=== PATIENT | female | born 1990 | race Caucasian/White ===

== ENCOUNTER 2017-12-03 02:58 | Day surgery (SDC) | payer BC ==
[2017-01-07 05:52] VITALS: Ht 165.1 cm; Wt 100.7 kg
[~2017-12-03] VITALS: Ht 165.1 cm; Wt 100.7 kg
[~2017-12-03 02:58] MED LIST: ACET-1718 PO; ACET-1966 PO; BIRTH CONTROL; DOXY-252; ETON1VAG7 VG; HYOS-24 SL; IBUP800T37 PO; LEVO-3 PO; LIB PO; LOR5 PO; LOR5/325 PO; NOR5/325 PO; ONDA4TAB PO; PAIN PILL PO; PREN-123 PO; PREN-127 PO; TRAM-420 PO; [UNRECOGNIZED DRUG - CODE] PO
[2017-12-03] MEDS ORDERED: fentaNYL CITR 250 MCG/5 ML AMP ONE (09:45)
[2017-12-03] MEDS ORDERED: PROPOFOL EMUL(*) 10MG/ML 20 ML 20 ML ONE (09:46)
[2017-12-03] MEDS ORDERED: ONDANSETRON 4 MG/2 ML VIAL ONE (09:46)
[2017-12-03] MEDS ORDERED: LIDOCAINE MPF 1% 5 ML VIAL ONE (09:46)
[2017-12-03] MEDS ORDERED: DEXAMETHASONE SOD PHOS 10MG/ML ONE (09:46)
[2017-12-03] MEDS ORDERED: KETAMINE HCL 200 MG/20 ML MDV ONE (09:48)
[2017-12-03] MEDS ORDERED: NORMOSOL R SOLN(*) 1000 ML BAG 1,000 ML IV PRN (10:55)
[2017-12-03] MEDS ORDERED: LIDOCAINE/SOD BICARB 8.4% SYR ID ONE (10:55)
[2017-12-03] MEDS ORDERED: MIDAZOLAM 2 MG/2 ML VIAL IVP PRN (10:55)
[2017-12-03] MEDS ORDERED: PHENAZOPYRIDINE 200 MG TAB PO ONE (10:55)
[2017-12-03] MEDS ORDERED: FAMOTIDINE 20 MG TAB PO ONE (10:55)
[2017-12-03] MEDS ORDERED: KETOROLAC 30 MG/ML VIAL ONE (11:41)
[2017-12-03] MEDS ORDERED: SUGAMMADEX SOD 200 MG/2 ML SDV ONE (11:41)
[2017-12-03 11:43] LABS: PLATELET COUNT, AUTOMATED 311 K/uL (150-450)
[2017-12-03] MEDS ORDERED: HALOPERIDOL LACT 5 MG/ML VIAL IM ONE (11:48)
[2017-12-03 11:57] VITALS: BP 103/72
[2017-12-03] MEDS ORDERED: SCOPOLAMINE 1.5 MG PATCH TD ONE (12:00)
[2017-12-03] MEDS ORDERED: ROPIVACAINE 0.2% 20 ML VIAL ONE (12:58)
[2017-12-03] MEDS ORDERED: LR(*) 1000 ML BAG 1,000 ML IV ONE (14:19)
--- NOTE | 2017-12-03 14:19 | Post Operative Note ---
Operative Note - [facility] [employer] Operative Day Date: Dec 03, 2017 Time: 14:17 Physicians Surgeon: Yuniel Anesthesia: GETA Diagnosis Pre-Op Diagnosis: Pelvic pain Dyspareunia Post-Op Diagnosis: same Procedure Findings: pelvic peritoneal endometriosis Procedure(s): L-scope diagnostic L-scope fulguraton of endometriosis Complications: [id number] Fluids Fluids: 1000 ml Estimated Blood Loss: minimal Dictated Date OP Note Dictated: Dec 03, 2017 Time OP Note Dictated: 14:19 Copies to: JOSÉ RIVAS MD ; JOSÉ RIVAS MD Dec 03, 2017 14:19
[2017-12-03] MEDS ORDERED: APAP/HYDROCODONE 325/5 TAB PO PRN (14:20)
[2017-12-03] MEDS ORDERED: LOR5/325 PO (14:22)
--- NOTE | 2017-12-03 14:23 | Short(Outpt) Discharge Summary ---
Discharge Summary Reason for Hosp/Final Diag: (1) Endometriosis, pelvic peritoneum Hospital Course & Plan: s/p fulguration of endometriosis (2) Dyspareunia, female (3) Pelvic pain Departure Discharge to: Home, Self Care Discharge Instructions Home Meds Active Scripts Hydrocodone Bit/Acetaminophen (HYDROCODON-ACETAMINOPHEN 5-325) 1 Each Tablet, 1 EACH PO Q4-6H PRN for PAIN, #14 TAB 0 Refills Prov:JOSÉ RIVAS MD 12/03/17 Reported Medications Levothyroxine Sodium (LEVOTHYROXINE SODIUM) 100 Mcg Tablet, 100 MCG PO QDAY 01/27/14 Discontinued Reported Medications Doxycycline Monohydrate (DOXYCYCLINE MONOHYDRATE) 100 Mg Capsule, BID 11/02/17 Discontinued Scripts Ondansetron (ZOFRAN ODT) 4 Mg Tab.rapdis, 4 MG PO Q6H PRN for NAUSEA/VOMITING, #20 TAB.OPAL 0 Refills Prov:STEPHON HERNÁNDEZ DO 11/02/17 Tramadol Hcl (TRAMADOL HCL) 50 Mg Tablet, 50 MG PO Q6H PRN for PAIN, #12 TAB 0 Refills Prov:STEPHON HERNÁNDEZ DO 11/02/17 Follow up Referrals: [facility] - In Two Weeks @ [facility] with JOSÉ RIVAS MD Diet: Regular Activity: As Tolerated Copies to: JOSÉ RIVAS MD ; JOSÉ RIVAS MD Dec 03, 2017 14:23
[2017-12-03] MEDS ORDERED: fentaNYL CITR 100 MCG/2 ML AMP ONE (14:32)
[2017-12-03 15:13] VITALS: BP 99/61
[2017-12-03 15:30] VITALS: BP 100/68
[2017-12-03 15:51] VITALS: BP 100/73
[2017-12-03 15:54] VITALS: BP 109/68
--- NOTE | 2017-12-03 19:44 | OPERATIVE REPORT 1 ---
EVENT DATE: December 03, 2017 SURGEON: Chetan Brice MD ANESTHESIOLOGIST: Micky Bob MD ANESTHESIA: General endotracheal. PREOPERATIVE DIAGNOSIS Pelvic pain. POSTOPERATIVE DIAGNOSES 1. Pelvic pain. 2. Pelvic peritoneal endometriosis. PROCEDURES PERFORMED 1. Diagnostic laparoscopy. 2. Laparoscopic fulguration of endometriosis. ESTIMATED BLOOD LOSS Minimal. FLUIDS Crystalloid 1000 mL IV. FINDINGS Upon inspecting the pelvis, normal-appearing ovaries and tubes bilaterally. Uterus appeared normal. The peritoneum to initial respects appeared to be without any significant issue. However, on close inspection, there was scarring noted in the posterior ovarian fossa and near the uterosacral ligaments bilaterally as well as in the posterior cul-de-sac some vesicular-type endometriosis. There was also white peritoneal scarring near the left infundibulopelvic ligament and also overlying the broad ligament cephalad to the round. These areas received fulguration utilizing bipolar coagulation. PROCEDURE IN DETAIL The patient was brought to the operating room with a working IV and placed under general endotracheal anesthesia. She was then moved to the dorsal lithotomy position and prepped and draped in the usual sterile fashion. A weighted speculum was placed in the vagina, and the cervix was grasped on the anterior lip with a single-toothed tenaculum. The uterus was carefully sounded to a depth of 8 cm. A size 8 VAISHALI uterine manipulator was selected and assembled. The cervix was dilated to accommodate. It was passed through the cervix into the uterus and the bulb inflated and secured. All other instruments were then removed. The bladder had been drained at preparation. The legs were brought back to the supine position. Gloves were changed. The umbilicus was infiltrated with 0.2% Naropin, and a 5 mm stab incision was made. A Veress needle was passed through this incision while elevating and stabilizing the anterior abdominal wall. I entered into the abdomen, and a pneumoperitoneum was created to an intra-abdominal pressure of 20 mmHg. This was reduced to 15 once all ports had been placed. The Veress needle was removed. The 5 mm bladeless trocar was passed through the incision into the abdomen under direct visualization with the scope and while stabilizing the anterior abdominal wall. This was performed without incident. The abdomen and pelvis were surveyed with the above findings noted. A second 5 mm port was placed suprapubically under a similar technique and without incident. Blunt probe was used to manipulate the pelvic contents for inspection. Using Kleppinger bipolar coagulation, the visible areas of concern were coagulated along the surface of the pelvic peritoneum using a power of 20 on bipolar coag. Specific effort was made to identify the ureters and identify their peristalsing track and avoid electrocautery in those locations in order to avoid injury to the ureters. Upon completion, the pelvis was copiously irrigated with saline and suctioned dry. No visible bleeders. The procedure was terminated. All instruments were removed. The pneumoperitoneum was suctioned out. Skin incisions were repaired with a 4-0 Monocryl simple subdermal and covered with Dermabond skin adhesive. She tolerated the procedure well. Sponge, lap, needle, and instrument counts were all correct times three. She was taken to Recovery in stable condition. EVELYNE
== END 2017-12-03 15:13 | disposition home or self-care (01) ==
LOC: OR 02:58
PROVIDERS: ATTEND Obstetrics & Gynecology
DX: N80.3 Endometriosis of pelvic peritoneum (principal)
CPT/HCPCS: 36415; 58662; 84703; 85025; J1100; J1630; J1885; J2001; J2250; J2405; J2704; J2795; J3010; J3490

== ENCOUNTER → 2017-12-23 | Day surgery (SDC) | payer BC ==
[2017-01-07 05:52] VITALS: Ht 165.1 cm; Wt 100.7 kg
[~2017-12-23] VITALS: Ht 165.1 cm; Wt 100.7 kg
[~2017-12-23] MED LIST changes: +ETON68IM SQ; +LIDOCAINE/SOD BICARB 8.4% SYR ID ONE; +NORMOSOL R SOLN(*) 1000 ML BAG 1,000 ML IV PRN; +PNV11TAB5 PO
[2017-12-23 07:56] VITALS: BP 116/76
[2017-12-23 09:19] VITALS: BP 98/77
[2017-12-23 09:30] VITALS: BP 94/59
[2017-12-23 09:45] VITALS: BP 91/76
[2017-12-23 09:49] VITALS: BP 110/81
[2017-12-23 09:50] VITALS: BP 106/86
== END ==
LOC: OR 00:42
PROVIDERS: ATTEND Internal Medicine Gastroenterology
DX: K44.9 Diaphragmatic hernia without obstruction or gangrene (principal); K20.9 Esophagitis, unspecified; K29.70 Gastritis, unspecified, without bleeding
CPT/HCPCS: 81025; 88305; 88313; 88344